=== PATIENT | female | born 1950 | race Caucasian/White ===

== ENCOUNTER → 2019-02-04 | Outpatient (CLI) | payer MEDICARE ==
[2019-02-04 14:58] VITALS: BP 176/82; PULSE 107; RESP 20; TEMP 98.5
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
== END | disposition home or self-care (01) ==
LOC: WWCWWP 14:03
PROVIDERS: ATTEND Surgery
DX: Z53.9 Procedure and treatment not carried out, unspecified reason (principal)

== ENCOUNTER → 2019-02-06 | Day surgery (SDC) | payer MEDICARE ==
[2019-02-06 07:34] VITALS: RESP 16; TEMP 98.1
[2019-02-06 08:56] VITALS: BP 165/84; PULSE 71
--- NOTE | 2019-02-06 09:47 | USB ---
EXAMINATION TYPE: US biopsy breast add'l VAD RT, US biopsy breast VAD RT DATE OF EXAM: 02/06/2019 CLINICAL HISTORY: R92.8 ABNORMAL MAMMOGRAM. TECHNIQUE: Ultrasound guided core biopsy of right 11:00 breast in addition the right axillary lymph node biopsy. COMPARISON: NONE FINDINGS: The procedure of ultrasound guided core biopsy was explained to the patient. Benefits, alternatives, and risks were discussed. An informed consent was then obtained. The patient was placed in supine positioning for imaging and for the procedure. The overlying skin was prepped and draped in usual sterile fashion. Lidocaine buffered with bicarbonate was used as anesthetic into the skin and subcutaneous tissue up to area of concern in the right 11:00 breast. Under ultrasound guidance, a 12-gauge vacuum assisted biopsy gun device was used to obtain 5 core samples. Following this, a biopsy clip was left in lesion. In addition a right axillary lymph node which appeared abnormal was also sampled with 3 core samples obtained. Microclip marker was also deployed within the sampled lymph node. Post procedural mammogram demonstrates appropriate deployment of clip marker devices. The patient tolerated the procedure well without any immediate complication. The patient was kept in the radiology department for short stay after the procedure and then discharged home in stable condition. IMPRESSION: Successful, uncomplicated ultrasound guided core biopsy of area of concern in the right 11:00 breast and right axilla, full pathology results to follow. Pathology Results: Malignant A. 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 See note. B. RIGHT AXILLARY MASS, NEEDLE CORE BIOPSIES: Metastatic Grade 1 infiltrating ductal carcinoma associated with sclerotic lymphoid tissue consistent with metastatic disease involving axillary lymph node. Recommendation Surgical consult of the right breast. DWAYNE
--- NOTE | 2019-02-06 10:44 | MM ---
Reason for exam: additional evaluation requested from abnormal screening. MG Diagnostic Mammo RT Wo CAD CC and MLO view(s) were taken of the right breast. ASSESSMENT: Post procedure mammogram for marker placement RECOMMENDATION: Ultrasound of the right breast in 6 months. PENDING PATHOLOGY RESULTS.
== END ==
LOC: RADUSWWP 06:47
PROVIDERS: ATTEND Surgery
DX: C50.411 Malignant neoplasm of upper-outer quadrant of right female breast (principal); C77.3 Secondary and unspecified malignant neoplasm of axilla and upper limb lymph nodes; Z88.0 Allergy status to penicillin; Z91.040 Latex allergy status
CPT/HCPCS: 88305; 88342; 88341; 77065; 38505; 19083; A4648; J2001; 19084

== ENCOUNTER → 2019-03-06 | Day surgery (SDC) | payer MEDICARE ==
[2019-03-06 07:35] VITALS: PULSE 87; RESP 16; TEMP 98.1
--- NOTE | 2019-03-06 09:23 | P.PCN ---
Date of Procedure: 03/06/19 Preoperative Diagnosis: Mammographic abnormality left breast Postoperative Diagnosis: Same Procedure(s) Performed: Left breast stereotactic core biopsy Anesthesia: local Surgeon: Yennifer Overton Estimated Blood Loss (ml): 0 Pathology: other (Breast tissue) Condition: stable Disposition: same day Indications for Procedure: Mammographic abnormality left breast Operative Findings: Dense breast tissue/microcalcifications noted and radiographs specimen Description of Procedure: The patient is a 69-year-old white female with radiographic abnormality in the left breast. Risk and benefits of stated to core biopsy were discussed with the patient. The patient understood and wished to proceed. The patient was brought to the sterotactic core biopsy room. She was positioned on the fluoroscopy table. The left breast was approached with a CC from above approach. Gelfoam was obtained in the area of concern was identified. The breast was prepped using Betadine. 1% lidocaine was used to anesthetize the area of concern. 10 mL of 1% lidocaine with epi and 10 mL of 1% lidocaine plain were utilized. The specimen was obtained using a 9-gauge vacuum-assisted rotating core biopsy needle. The needle was driven to the correct coordinates fired. Post fire films were obtained. The needle appeared to be low and the needle was elevated by going to a negative Y value. After this was performed repeat graft was performed. After we were assured that the needle was in the correct location 5 core biopsies at the 12 o'clock position were obtained. Radiograph of the specimen revealed the calcifications of concern had been sampled. A try gonzalez clip was placed. The specimen was sent to pathology. The patient tolerated the procedure in stable condition.
[2019-03-06 10:03] VITALS: BP 177/81
--- NOTE | 2019-03-06 12:57 | MM ---
EXAMINATION TYPE: MG stereo VAD BX LT DATE OF EXAM: 03/06/2019 COMPARISON: Outside radiographs dated 02/02/2019 CLINICAL HISTORY: 8mm group of indeterminate calcifications in the upper outer quadrant of the left breast for which stereotactic guided biopsy was recommended. TECHNIQUE: Stereotactic guided core biopsy of an 8 mm group of left breast calcifications in the upper outer quadrant. FINDINGS: The procedure of stereotactic guided core biopsy was explained to the patient. Benefits, alternatives, and risks were discussed. An informed consent was then obtained. The most suitable pathway for biopsy was chosen. Most suitable pathway was craniocaudal from above approach. I performed the localization, then surgeon, Dr. Abel Yanez performed the remainder of the procedure. A vacuum assisted biopsy gun was used to obtain multiple core samples. The patient tolerated the procedure well without any immediate complication. The patient was kept in the radiology department for short stay after the procedure and then discharged home in stable condition. Targeted calcifications are identified in specimen mammogram. Post biopsy mammogram shows the clip to appear in satisfactory position relative to the targeted area of concern on the preprocedure images. IMPRESSION: SUCCESSFUL, UNCOMPLICATED STEREOTACTIC GUIDED CORE BIOPSY OF AN 8 MM GROUP OF CALCIFICATIONS IN THE UPPER OUTER QUADRANT OF THE LEFT BREAST, FULL PATHOLOGY RESULTS TO FOLLOW. Pathology Results: Benign LEFT BREAST, NEEDLE CORE BIOPSIES: Fibrocystic spectrum disease with a prominent intraductal mineralization. Recommendation Follow up mammogram of the left breast in 6 months. MTDD
== END ==
LOC: RADMAMWWP 06:47
PROVIDERS: ATTEND Surgery
DX: N60.12 Diffuse cystic mastopathy of left breast (principal); N64.89 Other specified disorders of breast
CPT/HCPCS: 88305; 19081; A4648; J2001

== ENCOUNTER → 2019-03-11 | Outpatient (CLI) | payer MEDICARE ==
[2019-03-11 14:24] VITALS: BP 207/97; PULSE 100; RESP 18; TEMP 98
--- NOTE | 2019-03-11 15:02 | P.PN ---
Subjective Progress Note Date: 03/11/19 Principal diagnosis: Paty is a 69-year-old white female status post core biopsy of the right breast and axilla on [id number]. Both were positive for infiltrating ductal carcinoma. She subsequently underwent a left breast stereotactic core biopsy which was benign. The patient has been seen by Dr. Kothari and has been recommended to have neoadjuvant chemotherapy. The patient understands and this is going to have a Port-A-Cath placed next week. Additionally a PET scan has been ordered. Objective - Vital Signs Vital signs: Vital Signs Temp 98.0 F 03/11/19 14:21 Pulse 100 03/11/19 14:21 Resp 18 03/11/19 14:21 BP 207/97 03/11/19 14:21 Pulse Ox 96 03/11/19 14:21 Intake & Output 03/10/19 03/11/19 03/11/19 18:59 06:59 18:59 Weight 77.111 kg - Exam BMI 28.3 - Constitutional General appearance: Present: average body habitus - EENT Eyes: Present: EOMI ENT: Present: hearing grossly normal - Neck Neck: Present: normal ROM - Respiratory Respiratory: bilateral: CTA - Cardiovascular Rhythm: regular Heart sounds: normal: S1, S2 - Integumentary Integumentary Comment(s): small hematoma at the biopsy site left breast - Musculoskeletal Musculoskeletal: Present: gait normal - Psychiatric Psychiatric: Present: A&O x's 3, appropriate affect, intact judgment & insight Assessment and Plan Assessment: Impression: Right breast invasive ductal carcinoma/positive disease in lymph node Patient seen by medical oncology neoadjuvant chemotherapy plan Patient scheduled for Port-A-Cath placement next week Left breast: Stereotactic core biopsy benign We have discussed the patient's pathology. We've discussed that she is going to have neoadjuvant chemotherapy. We've discussed that surgery is going to be delayed until after her neoadjuvant chemotherapy. She is scheduled for Port-A-Cath placement next week. She will follow her in 2 months Plan: 1. Port-A-Cath placement 2. Follow appearing 2 months 3. Neoadjuvant chemotherapy CC: Dr. Tam encounter 25 minutes, > 50% of time in planning and counselling Time with Patient: Less than 30
== END | disposition home or self-care (01) ==
LOC: WWCWWP 13:19
PROVIDERS: ATTEND Surgery
DX: Z53.9 Procedure and treatment not carried out, unspecified reason (principal)

== ENCOUNTER → 2019-03-12 | Outpatient (CLI) | payer MEDICARE, OTHER ==
--- NOTE | 2019-03-13 10:52 | ECHOF ---
Referral Reason:C50.919 Breast ca, Z01.818 Pre chemo MEASUREMENTS -------- HEIGHT: 165.1 cm WEIGHT: 77.1 kg BP: RVIDd: 3.0 cm (< 3.3) IVSd: 1.6 cm (0.6 - 1.1) LVIDd: 4.3 cm (3.9 - 5.3) LVPWd: 1.8 cm (0.6 - 1.1) IVSs: 1.9 cm LVIDs: 2.7 cm LVPWs: 2.2 cm LAESV Index (A-L): 36.22 ml/m Ao Diam: 3.3 cm (2.0 - 3.7) AV Cusp: 1.6 cm (1.5 - 2.6) MV E David: 0.59 m/s MV DecT: 241 ms MV A David: 1.13 m/s MV E/A Ratio: 0.52 RAP: 5.00 mmHg RVSP: 22.52 mmHg FINDINGS -------- Sinus rhythm. This was a technically adequate study. The left ventricular size is normal. There is moderate concentric left ventricular hypertrophy. O verall left ventricular systolic function is low-normal with, an EF between 50 - 55 %. Mitral Doppl er inflow pattern suggests diastolic filling abnormality 13.71. The right ventricle is normal in size. LA is moderately dilated 34-39 ml/m2 The right atrial size is normal. Interatrial and interventricular septum intact. The aortic valve was not well visualized. There is no evidence of aortic regurgitation. There is no evidence of aortic stenosis. Mtrc-qo-[id number] mitral regurgitation is present. Mild tricuspid regurgitation present. There is no evidence of pulmonary hypertension. The right v entricular systolic pressure, as measured by Doppler, is 22.52mmHg. The pulmonic valve was not well visualized. The aortic root size is normal. IVC Not well visulized. There is no pericardial effusion. CONCLUSIONS -------- 1. Sinus rhythm. 2. This was a technically adequate study. 3. The left ventricular size is normal. 4. There is moderate concentric left ventricular hypertrophy. 5. Mitral Doppler inflow pattern suggest diastolic filling abnormality 13.71. 6. The right ventricle is normal in size. 7. LA is moderately dilated 34-39 ml/m2 8. The right atrial size is normal. 9. Interatrial and interventricular septum intact. 10. The aortic valve was not well visualized. 11. There is no evidence of aortic regurgitation. 12. There is no evidence of aortic stenosis. 13. Tllz-ge-rxumxfyp mitral regurgitation is present. 14. Mild tricuspid regurgitation present. 15. There is no evidence of pulmonary hypertension. 16. The right ventricular systolic pressure, as measured by Doppler, is 22.52mmHg. 17. The pulmonic valve was not well visualized. 18. The aortic root size is normal. 19. IVC Not well visulized. 20. There is no pericardial effusion. SALES RECRUITER: Maxine Jacobsen RDCS
== END | disposition home or self-care (01) ==
LOC: RADECHMAIN 15:52
PROVIDERS: ATTEND Internal Medicine Hematology & Oncology
DX: I08.1 Rheumatic disorders of both mitral and tricuspid valves (principal); C50.919 Malignant neoplasm of unspecified site of unspecified female breast
CPT/HCPCS: 93306

== ENCOUNTER → 2019-03-13 | Outpatient (CLI) | payer MEDICARE, OTHER ==
--- NOTE | 2019-03-16 08:15 | BMR ---
EXAMINATION TYPE: MR breast BILAT wo/w con DATE OF EXAM: 03/13/2019 COMPARISON: Outside bilateral screening. Mammogram January 07, 2019 BI-RADS 5. Outside Complete righ t breast ultrasound including axillary region January 07, 2019 BI-RADS 5. Outside Diagnostic left br east mammogram workup February 02, 2019 BI-RADS 4. HISTORY: Breast Cancer after mammogram and ultrasound workup for palpable abnormality right breast. F indings diagnosed on biopsy February 06, 2019. Stereotactic guided core biopsy left breast February with benign results. CONTRAST: Multiplanar, multisequence images of the breasts were acquired utilizing 7.5 mL intravenous MultiHanc e gadolinium contrast. TECHNIQUE: A series of fat and water weighted images in the long and short axis views of both breasts are obtained in conjunction with dynamic contrast MRI with subtraction technique. Three-dimensional and additional postprocessing imaging is created on independent workstation and reviewed during offi cial interpretation of this study. FINDINGS: Breast parenchyma shows predominantly fatty replaced tissue bilaterally. Dynamic postcontra st images show symmetric minimal background enhancement bilaterally. T2-weighted images show occasion al scattered tiny thin-walled cysts bilaterally. With regards to the left breast there is asymmetric diminished size. There is artifact from recent bi opsy clip lateral aspect 3:00 position. No suspicious skin thickening. No pathologic enhancement. Jose e benign-appearing left axillary lymph nodes are present. No concerning axillary adenopathy. Chest wa ll is intact. With regards to the right breast there is asymmetric enlargement and mild to moderate diffuse skin th ickening which shows fairly moderate enhancement. There is artifact from biopsy clip in the large mas s anteriorly 12:00 position. This has somewhat spiculated margins and measures approximately 4.2 cm A P diameter by 3.3 cm transversely by 2.5 cm craniocaudal diameter. Biopsy clip is fairly central in t he lesion. There is suggestion of some subcentimeter satellite nodules along the anterior-inferior as pect of neoplasm. There are abnormal right axillary lymph nodes redemonstrated including largest which is biopsy clip a long the right lateral margin, this measures 3.4 x 2.3 cm axial image 422 series 702 for reference. M ultiple additional abnormal axillary lymph nodes. Additional lymph node noted more medial in location near right lung apex axial image 38 series 301. IMPRESSION: Redemonstration of known large right breast mass or neoplasm with known axillary adenopat hy. Diffuse skin involvement is likely present. Resume at a candidate for conservative therapy in the right breast. No MRI evidence for invasive malignancy in the left breast. BI-RADS 6 biopsy-proven cancer right breast with axillary involvement. BI-RADS 2 benign findings left breast. Recommendation: Appropriate surgical and oncologic management based on PET/CT is felt Negative for me tastatic malignancy.
--- NOTE | 2019-03-16 14:06 | PE ---
Nuclear medicine PET/CT HISTORY: Breast carcinoma, initial Patient received 11.4 mCi F-18 FDG intravenously in delayed scanning was performed from the skull bas e to the mid thighs. Localization and attenuation correction CT scan was performed. Correlation to MR breast 03/13/2019 Neck and chest: The right axillary and subpectoral adenopathy noted on prior MRI shows associated hyp ermetabolic uptake, SUV 2.3-3.7. Right breast mass also shows hypermetabolic uptake, SUV 3.4. No medi astinal, left axillary or hilar adenopathy. No cervical or supraclavicular adenopathy. No evident naheed g mass. There are coronary artery calcifications. No pleural pericardial effusion. ABDOMEN: No evident adrenal adenopathy, mild prominence of the adrenal glands may be due to hyperplas ia. No liver mass or retroperitoneal adenopathy. There is ectasia of the abdominal aorta, atheromatou s changes present. 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 Fibroid uterus is enlarged. Questi on an intrauterine contraceptive device in place. Urinary bladder shows high attenuation luminal a, l ikely from excretion of contrast material. No pelvic adenopathy or free fluid. Osseous structures are within normal limits. IMPRESSION: Findings compatible with patient's history of breast carcinoma as described.
== END | disposition home or self-care (01) ==
LOC: RADMRIMAIN 10:22
PROVIDERS: ATTEND Internal Medicine Hematology & Oncology
DX: C50.511 Malignant neoplasm of lower-outer quadrant of right female breast (principal)
CPT/HCPCS: 78815; A9552; C8937; C8908; A9585; 77049